=== PATIENT | female | born 1940 | race African-American/Black ===

== ENCOUNTER 2021-07-02 10:02 | Emergency (ER) | payer MEDICARE, BC ==
[~2021-07-02] VITALS: Ht 162.6 cm; Wt 63.6 kg
--- NOTE | 2021-07-02 10:53 | PHYS DOC ---
Past Medical History Past Medical History: A-Fib, CVA, High Cholesterol, Hypertension Past Surgical History: No Surgical History Smoking Status: Never Smoker Alcohol Use: None General Adult EDM: Chief Complaint: MECHANICAL FALL HPI: HPI: Patient is an 80-year-old female that presents today with a multitude of complaints. Patient states that she was coming to the emergency department for evaluation of her neck and upper back pain that been going on for 3 days, she states she has had no trauma she just had an upper neck and back pain. Patient states that as she was walking out of her house she says she slipped and fell on her bottom on a stair she did not fall any more than one stair, patient states she does take anticoagulation therapy for stroke, but is having pelvic pain. Patient states that she was able to ambulate after the fall but normally uses a cane and was using her cane okay. Review of Systems: Review of Systems: Constitutional: Denies fever or chills. [] Eyes: Denies change in visual acuity. [] HENT: Denies nasal congestion or sore throat. [] Respiratory: Denies cough or shortness of breath. [] Cardiovascular: Denies chest pain or edema. [] GI: Denies abdominal pain, nausea, vomiting, bloody stools or diarrhea. [] : Denies dysuria. [] Musculoskeletal: Neck and upper back pain, bilateral hip and pelvis pain and coccyx pain Integument: Denies rash. [] Neurologic: Denies headache, focal weakness or sensory changes. [] Endocrine: Denies polyuria or polydipsia. [] Lymphatic: Denies swollen glands. [] Psychiatric: Denies depression or anxiety. [] Heart Score: C/O Chest Pain: N/A Risk Factors: Risk Factors: DM, Current or recent (<one month) smoker, HTN, HLP, family history of CAD, obesity. Risk Scores: Score 0 - 3: 2.5% MACE over next 6 weeks - Discharge Home Score 4 - 6: 20.3% MACE over next 6 weeks - Admit for Clinical Observation Score 7 - 10: 72.7% MACE over next 6 weeks - Early Invasive Strategies Physical Exam: PE: Constitutional: Well developed, well nourished, no acute distress, non-toxic appearance. [] HENT: Normocephalic, atraumatic, bilateral external ears normal, oropharynx moist, no oral exudates, nose normal. [] Eyes: PERRLA, EOMI, conjunctiva normal, no discharge. [] Neck: Normal range of motion noted patient does have increased pain with range of motion no tenderness, supple, no stridor, tenderness noted throughout the neck [] Cardiovascular:Heart rate regular rhythm, no murmur [] Lungs & Thorax: Bilateral breath sounds clear to auscultation [] Abdomen: Bowel sounds normal, soft, no tenderness, no masses, no pulsatile masses. [] Skin: Warm, dry, no erythema, no rash. [] Back: Palpation of thoracic and lumbar spine reveals no point tenderness over the spine, tenderness noted over the left SI joint and coccyx area. No lacerations abrasions contusions or ecchymosis was noted Extremities: Inspection and palpation of legs was done no abrasions, lacerations, contusions, or ecchymosis was noted Neurologic: Alert and oriented X 3, normal motor function, normal sensory function, no focal deficits noted. [] Psychologic: Affect normal, judgement normal, mood normal. [] Current Patient Data: Vital Signs: Vital Signs Date Time Temp Pulse Resp B/P (MAP) Pulse Ox O2 Delivery O2 Flow Rate FiO2 07/02/21 10:30 98.4 80 15 162/97 (118) 95 Room Air 98.4 EKG: EKG: [] Radiology/Procedures: Radiology/Procedures: REASON: fall with pelvic pain and laly hip pain PROCEDURE: HIP BILATERAL WITH PELVIS XR HIP (WITH OR WITHOUT PELVIS) 1 VIEW Clinical indications: Reason: fall with pelvic pain and laly hip pain / Spl. Instructions: / History: Findings: No acute fracture or dislocation or osteolytic process is evident. No diastases of the symphysis pubis or either SI joint is seen. No significant hip arthritic change is seen. Calcified lower uterine fibroid versus urinary bladder stone is evident. IMPRESSION: No acute osseous abnormality is evident. Calcified lower uterine fibroid versus urinary bladder stone measuring 20 mm. Electronically signed by: Eros Mcdaniel MD (07/02/2021 11:42 AM) [id number][] REASON: neck pain no trauma PROCEDURE: CT CERVICAL SPINE WO CONTRAST EXAM: Ct Cervical Spine Without Iv Contrast CLINICAL HISTORY: Reason: neck pain no trauma / Spl. Instructions: / History: COMPARISON: None available. TECHNIQUE: Helical CT of the cervical spine was performed. Axial, coronal and sagittal reformatted images were also performed. PQRS compliance statement - One or more of the following individualized dose reduction techniques were utilized for this study: 1. Automated exposure control 2. Adjustment of the mA and/or kV according to patient size 3. Use of iterative reconstruction technique FINDINGS: Vertebral body heights are preserved. Moderate to severe C3 C4-5, C4-5 and severe C5-6, C6-7 disc height loss. Straightening of the normal cervical lordosis. No spinal listhesis. Small posterior disc osteophyte complexes C3-4, C4-5, C5-6 and C6-7 resulting in mild to moderate central canal stenosis, most prominent at C3-4. 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 IMPRESSION: 1. 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 Of note this results in moderate to severe narrowing of the central canal and if there is clinical concern for myelopathy, MRI would provide additional details. 2. No acute fracture or subluxation. Electronically signed by: Jony Simental MD (07/02/2021 12:15 PM) [id number] Course & Med Decision Making: Course & Med Decision Making Pertinent Labs and Imaging studies reviewed. (See chart for details) 1240 reviewed radiology results with patient, instructed patient that her neck x-rays look like she has degenerative changes and will need further management of this through neurosurgery, informed her that her pelviC films are negative for any kind of fracture, just a contusion from a fall. Patient will need to follow-up with her primary care OR Dr. Brunson, neurosurgery, for further management of her neck pain. Turn to the emergency department you start having numbness and tingling in your arms or inability to use your arms Dragon Disclaimer: Drake Disclaimer: This electronic medical record was generated, in whole or in part, using a voice recognition dictation system. Departure Departure Impression: Primary Impression: Neck pain without injury Additional Impression: Coccyx contusion Qualified Codes: S30.0XXA - Contusion of lower back and pelvis, initial encounter Disposition: HOME / SELF CARE / HOMELESS Condition: STABLE Referrals: LEVAR COVARRUBIAS MD (PCP) SUJATA WHYTE MD Patient Instructions: Cervical Sprain, Tailbone Injury Additional Instructions: Ice to affected areas 20 minutes on 4-5 times daily over the next 48 to 72 hours Follow-up with your primary care or Dr. Brunson neurosurgery for further management of your neck pain Ultram 50 mg take 1 tablet every 6 hours as needed for severe pain Lidoderm patches apply 1 to painful area in the a.m. and remove after 12 hours keeping it off for 12 hours. Return to the emergency department if of having increased numbness or tingling in your arms, inability to use your arms or have any other concerns Scripts Lidocaine (Lidocaine PATCH ) 1 Each Adh..patch 1 EACH TP DAILY for FOR LOCAL PAIN, #14 PATCH REMOVE AFTER 12 HOURS Prov: MERNA BIANCHI APRN 07/02/21 Tramadol Hcl (ULTRAM) 50 Mg Tablet 1 TAB PO PRN Q6HRS PRN for pain MDD 4 Tablet(s), #28 TAB 0 Refills Prov: MERNA BIANCHI APRN 07/02/21 MERNA BIANCHI APRN Jul 02, 2021 10:53
[2021-07-02] MEDS ORDERED: HYDROcodone/APAP 5/325MG 1 TAB TABLET PO ONE (11:00)
--- NOTE | 2021-07-02 11:45 | RAD ---
XR HIP (WITH OR WITHOUT PELVIS) 1 VIEW Clinical indications: Reason: fall with pelvic pain and laly hip pain / Spl. Instructions: / History: Findings: No acute fracture or dislocation or osteolytic process is evident. No diastases of the sym physis pubis or either SI joint is seen. No significant hip arthritic change is seen. Calcified lower uterine fibroid versus urinary bladder stone is evident. IMPRESSION: No acute osseous abnormality is evident. Calcified lower uterine fibroid versus urinary b ladder stone measuring 20 mm. Electronically signed by: Eros Mcdaniel MD (07/02/2021 11:42 AM) [id number]
--- NOTE | 2021-07-02 12:18 | RAD ---
EXAM: Ct Cervical Spine Without Iv Contrast CLINICAL HISTORY: Reason: neck pain no trauma / Spl. Instructions: / History: COMPARISON: None available. TECHNIQUE: Helical CT of the cervical spine was performed. Axial, coronal and sagittal reformatted im ages were also performed. PQRS compliance statement - One or more of the following individualized dose reduction techniques wer e utilized for this study: 1. Automated exposure control 2. Adjustment of the mA and/or kV according to patient size 3. Use of iterative reconstruction technique FINDINGS: Vertebral body heights are preserved. Moderate to severe C3 C4-5, C4-5 and severe C5-6, C6-7 disc hei ght loss. Straightening of the normal cervical lordosis. No spinal listhesis. Small posterior disc os teophyte complexes C3-4, C4-5, C5-6 and C6-7 resulting in mild to moderate central canal stenosis, mo st prominent at C3-4. Chronic appearance of C1 posterior elements with corticated margins, the left posterior arch is absen t, possibly postsurgical or congenital. IMPRESSION: 1. Chronic appearance of C1 posterior elements with corticated margins, the left posterior arch is a bsent, possibly postsurgical or congenital. Of note this results in moderate to severe narrowing of t he central canal and if there is clinical concern for myelopathy, MRI would provide additional detail s. 2. No acute fracture or subluxation. Electronically signed by: Jony Simental MD (07/02/2021 12:15 PM) [facility]
[2021-07-02] MEDS ORDERED: TRAM-48 PO (13:05)
[2021-07-02] MEDS ORDERED: LIDO700A21 TP (13:08)
[2021-07-02 13:10] VITALS: BP 166/97
== END 2021-07-02 13:50 | disposition home or self-care (01) ==
LOC: ER 10:02
DX: S30.0XXA Contusion of lower back and pelvis, initial encounter (principal); M54.2 Cervicalgia; M25.551 Pain in right hip; M25.552 Pain in left hip; M54.6 Pain in thoracic spine; M54.59 Other low back pain; I48.91 Unspecified atrial fibrillation; E78.00 Pure hypercholesterolemia, unspecified; I10 Essential (primary) hypertension; Z86.73 Personal history of transient ischemic attack (TIA), and cerebral infarction without residual deficits; W01.0XXA Fall on same level from slipping, tripping and stumbling without subsequent striking against object, initial encounter; Y93.01 Activity, walking, marching and hiking; Y92.89 Other specified places as the place of occurrence of the external cause; Y99.8 Other external cause status
CPT/HCPCS: 72125; 73521; 99285-25